=== PATIENT | female | born 1995 | race Caucasian/White ===

== ENCOUNTER 2017-10-05 22:04 | Emergency (ER) | payer BC ==
[~2017-10-05] VITALS: Ht 170.2 cm; Wt 63.6 kg
[2017-10-05 22:06] VITALS: BP 134/94; TEMP 97.9
[2017-10-05] MEDS ORDERED: NIKKI1 TAB PO (22:10)
[2017-10-05] MEDS ORDERED: EFFEXOR-XR150 MG PO (22:10)
[2017-10-05] MEDS ORDERED: MULTI VITAMINS1 TAB PO (22:10)
[2017-10-05] MEDS ORDERED: MAGNESIUM200 MG PO (22:11)
[2017-10-05] MEDS ORDERED: EPA FISH OIL1 SGL PO (22:11)
[2017-10-05 22:51] LABS: BASO % 0.4 % (0.0-2.0); GRAN # 4.2 (1.4-6.5); LYMPH # 2.1 (1.2-3.4); LYMPH % 29.9 % (20.0-51.0); MEAN CELL VOLUME 81 fl (80.0-100.0); MEAN CORPUSCULAR HGB CONC 32 g/dl (33.0-37.0); MEAN PLATELET VOLUME 9.6 fl (7.4-10.4); MONO # 0.6 (0.1-0.6); MONO % 8.6 % (1.7-9.3); PLATELET COUNT 227 K/mm3 (130-400); RED BLOOD COUNT 4.32 M/mm3 (4.10-5.30)
[2017-10-05 22:53] LABS: HEMATOCRIT 34.8 % (37.0-47.0); HEMOGLOBIN 11.2 g/dl (12.5-16.0); MEAN CORPUSCULAR HEMOGLOBIN 26 pg (27.0-31.0)
[2017-10-05 23:03] LABS: ADJUSTED CALCIUM 9.6 mg/dL (8.4-10.2); ALANINE AMINOTRANSFERASE 28 U/L (9-52); ALBUMIN 4.1 gm/dL (3.5-5.0); ALKALINE PHOSPHATASE 52 U/L (50-136); ANION GAP 9 mmol/L (7-16); BILIRUBIN,TOTAL 0.3 mg/dL (0.0-1.0); BLOOD UREA NITROGEN 13 mg/dL (7-17); CALCIUM 9.7 mg/dL (8.4-10.2); CARBON DIOXIDE 25 mmol/L (22-30); CHLORIDE 104 mmol/L (98-107); CREATININE, serum 0.67 mg/dL (0.52-1.25); GLUCOSE 98 mg/dL (74-106); SODIUM 138 mmol/L (137-145); TOTAL PROTEIN 7.5 gm/dL (6.4-8.2)
[2017-10-05 23:14] LABS: TROPONIN-I < 0.012 ng/mL (0.000-0.034)
[2017-10-06 01:06] VITALS: PULSE 75
== END 2017-10-06 01:07 | disposition home or self-care (01) ==
LOC: COL.ER 22:04
PROVIDERS: Emergency Medicine
DX: R07.89 Other chest pain (principal)
CPT/HCPCS: J1885